=== PATIENT | male | born 1980 | race African-American/Black ===

== ENCOUNTER 2016-10-31 16:56 | Emergency (ER) | payer MEDICAID | END 2016-10-31 20:43 | disposition home or self-care (01) | LOC: D.ER 16:56 | DX: S62.301A Unspecified fracture of second metacarpal bone, left hand, initial encounter for closed fracture (principal); Y04.2XXA Assault by strike against or bumped into by another person, initial encounter; Y93.89 Activity, other specified; Y92.89 Other specified places as the place of occurrence of the external cause ==

== ENCOUNTER 2017-03-28 22:44 | Emergency (ER) | payer OTHER | END 2017-03-28 23:27 | disposition home or self-care (01) | LOC: D.ER 22:44 | DX: S16.1XXA Strain of muscle, fascia and tendon at neck level, initial encounter (principal); V43.62XA Car passenger injured in collision with other type car in traffic accident, initial encounter; Y93.89 Activity, other specified; Y92.89 Other specified places as the place of occurrence of the external cause; S39.012A Strain of muscle, fascia and tendon of lower back, initial encounter; F17.200 Nicotine dependence, unspecified, uncomplicated ==